=== PATIENT | female | born 1995 | race Caucasian/White ===

== ENCOUNTER → 2025-03-15 | Outpatient (CLI) | payer OTHER | LOC: M RAD 09:14 | PROVIDERS: ATTEND Physician Assistant | DX: M22.2X1 Patellofemoral disorders, right knee (principal); M25.571 Pain in right ankle and joints of right foot ==

== ENCOUNTER → 2025-03-20 | Outpatient (CLI) | payer OTHER | LOC: M WHC 12:56 | PROVIDERS: ATTEND Physician Assistant | DX: N64.4 Mastodynia (principal); R92.333 Mammographic heterogeneous density, bilateral breasts ==

== ENCOUNTER → 2025-05-25 | Outpatient (CLI) | payer OTHER | LOC: M RAD 11:33 | PROVIDERS: ATTEND Physician Assistant | DX: M25.531 Pain in right wrist (principal) ==

== ENCOUNTER → 2025-05-30 | Outpatient (CLI) | payer OTHER ==
[2025-05-30 17:12] LABS: BASO # 0.0 10^3/uL (0.0-0.2); BASO % 0.5 % (0.0-1.0); EOS # 0.4 10^3/uL (0.0-0.5); EOS % 5.1 % (0.0-3.0); LYMPH # 2.3 10^3/uL (1.5-5.0); LYMPH % 29.5 % (24.0-44.0); MONO # 0.5 10^3/uL (0.0-0.8); MONO % 5.9 % (2.0-8.0); NEUTROPHILS # 4.7 10^3/uL (1.5-8.5); NEUTROPHILS % 58.7 % (36.0-66.0); PLATELET COUNT, AUTOMATED 325 10^3/uL (150-450)
[2025-05-30 17:35] LABS: ALT/SGPT 26 U/L (7.0-40); AST/SGOT 23 U/L (<34); C REACTIVE PROTEIN QUANTITATIV < 0.50 MG/DL (<1.0); CALCIUM LEVEL 8.9 MG/DL (8.5-10.1); CARBON DIOXIDE LEVEL 26 MMOL/L (20-31); CHLORIDE LEVEL 106 MMOL/L (98-107); CREATININE FOR GFR 0.82 MG/DL (0.55-1.30); GLOMERULAR FILTRATION RATE > 90.0 (>60); IRON (FE) 55 UG/DL (50-170); PERCENT SATURATION 18.8 % (13.2-45.0); POTASSIUM SERUM 3.9 MMOL/L (3.5-5.1); SODIUM LEVEL 142 MMOL/L (136-145)
[2025-05-30 18:16] LABS: HEPATITIS C VIRUS ABY INDEX < 0.02 INDEX (<0.8)
[2025-06-01 11:32] LABS: ALPHA 1 ANTITRYPSIN 152 mg/dL (83-199); CERULOPLASMIN 25.0 mg/dL (14-48)
[2025-06-01 16:26] LABS: ANTI-MITOCHONDRIAL ANTIBODY NEGATIVE (NEGATIVE)
== END ==
LOC: M LAB 15:11
PROVIDERS: ATTEND Internal Medicine Gastroenterology
DX: K52.9 Noninfective gastroenteritis and colitis, unspecified (principal); R10.9 Unspecified abdominal pain; R79.89 Other specified abnormal findings of blood chemistry

== ENCOUNTER → 2025-06-15 | Outpatient (CLI) | payer OTHER | LOC: M WHC 07:14 | PROVIDERS: ATTEND Internal Medicine Gastroenterology | DX: K52.9 Noninfective gastroenteritis and colitis, unspecified (principal); R79.89 Other specified abnormal findings of blood chemistry ==